=== PATIENT | male | born 1990 | race Two or more races ===

== ENCOUNTER 2025-04-25 01:23 | Emergency (ER) | payer MEDICAID ==
[~2025-04-25] VITALS: Ht 175.3 cm; Wt 65.8 kg
[2025-04-25 01:27] VITALS: BP 106/73
[2025-04-25] MEDS ORDERED: BACITRACIN ZINC OINT 15 GM TUBE ONE (02:06)
[2025-04-25] MEDS: BACITRACIN ZINC OINT 15 GM TUBE TOP STA (02:14)
[2025-04-25 02:21] VITALS: BP 106/73; O2SAT 7
== END 2025-04-25 02:22 | disposition home or self-care (01) ==
LOC: ER 01:30
DX: S40.819A Abrasion of unspecified upper arm, initial encounter (principal); F17.200 Nicotine dependence, unspecified, uncomplicated; W18.30XA Fall on same level, unspecified, initial encounter; Y93.89 Activity, other specified; Y92.89 Other specified places as the place of occurrence of the external cause; Y99.9 Unspecified external cause status
CPT/HCPCS: A4606; A4663